=== PATIENT | female | born 1975 | race African-American/Black ===

== ENCOUNTER 2017-03-15 18:35 | Emergency (ER) | payer BC ==
[~2017-03-15] VITALS: Ht 154.9 cm; Wt 90.7 kg
--- NOTE | ~2017-03-15 | EKG ---
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
[~2017-03-15 18:35] MED LIST: ALEVE220 M1 PO; COLACE100 MG PO; IBUPROFEN 600600 M1 PO; IRON325 PO; NORCO 5-325 TA1 EACH PO; OXYCODONE-APAP1 EAC6 PO; PERCOCET PO; ZANTAC 150MG T150 M1 PO
[2017-03-15] MEDS ORDERED: PEPTO-BISMOL1 TAB PO (19:18)
[2017-03-15] MEDS ORDERED: ZANTAC 150MG T150 MG PO (19:18)
[2017-03-15] MEDS ORDERED: GAS-X125 MG PO (19:18)
[2017-03-15] MEDS ORDERED: ACID CONTROLLER10 MG PO (19:18)
[2017-03-15 20:14] LABS: HEMATOCRIT 40.4 % (37.0-47.0); HEMOGLOBIN 13.9 gm/dL (12.0-15.0); MCH 29.1 pg (26.0-34.0); MCHC 34.5 g/dL (28.0-37.0); MCV 84.2 fL (80.0-100.0); RBC 4.79 mil/uL (4.20-5.00); RDW 13.4 % (10.5-14.5); WBC 10.7 thou/uL (4.0-11.0)
[2017-03-15 20:22] LABS: ANION GAP 14 mmol/L (7-16); BUN 7 mg/dL (7-18); CALCIUM 9.8 mg/dL (8.5-10.1); CHLORIDE 103 mmol/L (98-107); CO2 22 mmol/L (21-32); CREATININE 0.8 mg/dL (0.6-1.0); GLUCOSE 127 mg/dL (74-106); POTASSIUM 3.4 mmol/L (3.5-5.1); SODIUM 139 mmol/L (136-145)
[2017-03-15 20:32] LABS: TROPONIN-I < 0.04 ng/mL (<0.04-0.07)
== END 2017-03-16 04:00 | disposition home or self-care (01) ==
LOC: ER 18:35
PROVIDERS: Emergency Medicine
DX: R07.9 Chest pain, unspecified (principal); E11.9 Type 2 diabetes mellitus without complications; I10 Essential (primary) hypertension; E78.00 Pure hypercholesterolemia, unspecified; F10.99 Alcohol use, unspecified with unspecified alcohol-induced disorder; Z86.2 Personal history of diseases of the blood and blood-forming organs and certain disorders involving the immune mechanism

== ENCOUNTER 2018-06-29 10:47 | Emergency (ER) | payer BC, OTHER ==
[~2018-06-29] VITALS: Ht 154.9 cm; Wt 90.7 kg
[~2018-06-29 10:47] MED LIST changes: +ACID CONTROLLER10 MG PO; +GAS-X125 MG PO; +PEPTO-BISMOL1 TAB PO; +ZANTAC 150MG T150 MG PO
--- NOTE | 2018-06-29 11:32 | EKG ---
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
[2018-06-29 12:34] LABS: ANION GAP 10 mmol/L (7-16); BUN 9 mg/dL (7-18); CALCIUM 9.6 mg/dL (8.5-10.1); CHLORIDE 103 mmol/L (98-107); CO2 25 mmol/L (21-32); CREATININE 0.7 mg/dL (0.6-1.0); GLUCOSE 204 mg/dL (74-106); POTASSIUM 4.3 mmol/L (3.5-5.1); SODIUM 138 mmol/L (136-145)
[2018-06-29] MEDS ORDERED: GLIPIZIDE 10 MG10 MG PO (12:34)
[2018-06-29] MEDS ORDERED: LISINOPRIL10 MG PO (12:34)
[2018-06-29] MEDS ORDERED: CRESTOR40 MG PO (12:36)
[2018-06-29 12:37] LABS: ABSOLUTE NEUTROPHILS 6.4 thou/uL (1.4-8.2); BASOPHILS 0.2 % (0.0-2.0); EOSINOPHILS 1.4 % (0.0-3.0); HEMATOCRIT 40.6 % (37.0-47.0); HEMOGLOBIN 13.9 gm/dL (12.0-15.0); LYMPHOCYTES 22.5 % (24.0-44.0); MCH 29.2 pg (26.0-34.0); MCHC 34.3 g/dL (28.0-37.0); MCV 85.2 fL (80.0-100.0); PLATELET COUNT 174 thou/uL (150-400); POLYS 70.9 % (36.0-66.0); RBC 4.77 mil/uL (4.20-5.00); RDW 13.3 % (10.5-14.5)
[2018-06-29 12:43] LABS: TROPONIN-I <0.06 ng/mL (<0.06)
[2018-06-29] MEDS ORDERED: PROTONIX40 MG PO (12:51)
[2018-06-29 13:19] VITALS: BP 129/70
== END 2018-06-29 13:21 | disposition home or self-care (01) ==
LOC: ER 10:47
PROVIDERS: Emergency Medicine
DX: R07.89 Other chest pain (principal); E11.9 Type 2 diabetes mellitus without complications; I10 Essential (primary) hypertension; E78.00 Pure hypercholesterolemia, unspecified; D64.9 Anemia, unspecified